=== PATIENT | female | born 1930 | race Caucasian/White ===

== ENCOUNTER 2017-05-19 10:46 | Inpatient (IN) | payer OTHER ==
[~2017-05-19] VITALS: Ht 157.5 cm; Wt 86.2 kg
[2017-05-19] MEDS ORDERED: [UNRECOGNIZED DRUG - REMARK] (10:50)
[2017-05-28] MEDS ORDERED: LASIX20 MG PO (10:01)
== END 2017-05-28 18:55 | disposition home or self-care (01) | DRG 194 ==
LOC: ER 10:46 → SEC-K 20:51 → MEDJ 05-21 11:22
PROC: 3E0F7GC Introduction of Other Therapeutic Substance into Respiratory Tract, Via Natural or Artificial Opening (ICD-10-PCS; principal; 2017-05-19)
PROC: 4A033R1 Measurement of Arterial Saturation, Peripheral, Percutaneous Approach (ICD-10-PCS; 2017-05-19)
PROC: BW21ZZZ Computerized Tomography (CT Scan) of Abdomen and Pelvis (ICD-10-PCS; 2017-05-19)
PROC: B246ZZZ Ultrasonography of Right and Left Heart (ICD-10-PCS; 2017-05-19)
PROC: BW30ZZZ Magnetic Resonance Imaging (MRI) of Abdomen (ICD-10-PCS; 2017-05-20)
PROC: 30233N1 Transfusion of Nonautologous Red Blood Cells into Peripheral Vein, Percutaneous Approach (ICD-10-PCS; 2017-05-20)
PROC: BB24ZZZ Computerized Tomography (CT Scan) of Bilateral Lungs (ICD-10-PCS; 2017-05-24)
PROC: BW21ZZZ Computerized Tomography (CT Scan) of Abdomen and Pelvis (ICD-10-PCS; 2017-05-24)
DX: J18.9 Pneumonia, unspecified organism (principal); J90 Pleural effusion, not elsewhere classified; D68.32 Hemorrhagic disorder due to extrinsic circulating anticoagulants; R09.02 Hypoxemia; I10 Essential (primary) hypertension; E11.9 Type 2 diabetes mellitus without complications; I25.10 Atherosclerotic heart disease of native coronary artery without angina pectoris; R58 Hemorrhage, not elsewhere classified; T45.515A Adverse effect of anticoagulants, initial encounter; Y92.098 Other place in other non-institutional residence as the place of occurrence of the external cause; F41.8 Other specified anxiety disorders; D50.0 Iron deficiency anemia secondary to blood loss (chronic)
CPT/HCPCS: 74181

== ENCOUNTER 2017-05-29 08:43 | Inpatient (IN) | payer OTHER ==
[~2017-05-29] VITALS: Ht 160 cm; Wt 85.7 kg
[~2017-05-29 08:43] MED LIST: LASIX20 MG PO; [UNRECOGNIZED DRUG - REMARK]
[2017-06-01] MEDS ORDERED: ATIVAN1 M1 (13:19)
[2017-06-01] MEDS ORDERED: LEXAPRO20 MG (13:19)
[2017-06-01] MEDS ORDERED: REMERON15 MG (13:19)
[2017-06-15] MEDS ORDERED: LIPITOR20 MG PO (09:27)
[2017-06-15] MEDS ORDERED: LOPRESSOR25 MG PO (09:27)
[2017-06-15] MEDS ORDERED: DOXYCYCLINE HY100 M2 PO (10:54)
== END 2017-06-15 13:22 | disposition home or self-care (01) | DRG 280 ==
LOC: ER 08:43 → ICU-2 12:15 → ICU 05-31 13:21 → MEDI 06-09 15:05
PROC: 3E0F7GC Introduction of Other Therapeutic Substance into Respiratory Tract, Via Natural or Artificial Opening (ICD-10-PCS; principal; 2017-05-29)
PROC: 4A033R1 Measurement of Arterial Saturation, Peripheral, Percutaneous Approach (ICD-10-PCS; 2017-05-29)
PROC: B54DZZZ Ultrasonography of Bilateral Lower Extremity Veins (ICD-10-PCS; 2017-05-29)
PROC: B246ZZZ Ultrasonography of Right and Left Heart (ICD-10-PCS; 2017-05-30)
PROC: 5A09557 Assistance with Respiratory Ventilation, Greater than 96 Consecutive Hours, Continuous Positive Airway Pressure (ICD-10-PCS; 2017-05-30)
PROC: 05H333Z Insertion of Infusion Device into Right Innominate Vein, Percutaneous Approach (ICD-10-PCS; 2017-06-08)
PROC: 4A12X4Z Monitoring of Cardiac Electrical Activity, External Approach (ICD-10-PCS; 2017-06-09)
DX: I11.0 Hypertensive heart disease with heart failure (principal); J96.01 Acute respiratory failure with hypoxia; I21.4 Non-ST elevation (NSTEMI) myocardial infarction; J18.9 Pneumonia, unspecified organism; J98.11 Atelectasis; J90 Pleural effusion, not elsewhere classified; B37.49 Other urogenital candidiasis; I25.10 Atherosclerotic heart disease of native coronary artery without angina pectoris; E11.65 Type 2 diabetes mellitus with hyperglycemia; I50.33 Acute on chronic diastolic (congestive) heart failure; Z66 Do not resuscitate; K56.41 Fecal impaction; I48.0 Paroxysmal atrial fibrillation; F41.8 Other specified anxiety disorders; I80.8 Phlebitis and thrombophlebitis of other sites